=== PATIENT | female | born 1975 | race Caucasian/White ===

== ENCOUNTER 2017-05-10 12:57 | Emergency (ER) | payer OTHER ==
[~2017-05-10] VITALS: Ht 165.1 cm; Wt 62.0 kg
[2017-05-10 13:01] VITALS: BP 151/95; PULSE 112; RESP 16; TEMP 98.3; O2SAT 100
[2017-05-10 13:30] VITALS: RESP 16; O2SAT 95
--- NOTE | 2017-05-10 13:48 | PD ---
HPI Chief Complaint: Cardiac Complaint Time Seen by Provider: 13:12 Travel History International Travel<30 days: No Contact w/Intl Traveler<30days: No Traveled to known affect area: No History of Present Illness HPI 41-year-old female complains of palpitation, headache, dizziness. Patient states that she has history of intermittent SVT since she was younger. Patient was seen by retirement assistant on personal physician and had thyroid test and echocardiogram done in the past. Patient is not on any medication for tachycardia. Patient states that she has tachycardia in the 140s-160s at home for the past 3 days. Patient denies any excessive caffeine intake. Patient denies any chest pain or shortness of breath. Patient states that she has had intermittent lightheadedness, feeling things spinning around her the past 4 days. Patient states that she has mild aching headache diffuse over the head. Patient denies any visual change. Patient denies any neck pain. Patient denies abdominal pain. Patient denies any nausea vomiting diarrhea. Patient was seen in the local urgent care center and advised to take meclizine 3 times a day. Patient states that she has intermittent lightheadedness despite taking the meclizine. Patient states that the dizziness is not associated with head movement. Patient denies any ringing in the ears. Patient has been eating well. Patient denies any chance of being . Patient denies any dysuria or frequency. Patient denies any vaginal discharge or bleeding. Patient states that she was on medication for control intermittent SVT in the past. PFSH Past Medical History Medical History: Denies Significant Hx Tetanus Vaccination: < 5 Years Influenza Vaccination: No ?: Not LMP: 03/27/17 Past Surgical History Other Surgery: Yes (CYST REMOVED FROM ) Social History Alcohol Use: Yes (SOCIAL) Tobacco Use: No Substance Use: No Allergies-Medications (Allergen,Severity, Reaction): Coded Allergies: No Known Allergies (Unverified , 05/10/17) Reported Meds & Prescriptions Reported Meds & Active Scripts Active No Active Prescriptions or Reported Medications Review of Systems General / Constitutional: No: Fever Eyes: No: Visual changes HENT: Positive: Headaches, Lightheadedness Cardiovascular: Positive: Tachycardia, No: Chest Pain or Discomfort Respiratory: No: Shortness of Breath Gastrointestinal: No: Abdominal Pain Genitourinary: No: Dysuria Musculoskeletal: No: Pain Skin: No Rash Neurologic: No: Weakness Psychiatric: No: Depression Endocrine: No: Polydipsia Hematologic/Lymphatic: No: Easy Bruising Physical Exam Narrative GENERAL: Well-nourished, well-developed patient. SKIN: Focused skin assessment warm/dry. HEAD: Normocephalic. EYES: No scleral icterus. No injection or drainage. Pupils 2 mm equal reactive. NECK: Supple, trachea midline. No JVD or lymphadenopathy. CARDIOVASCULAR: Mild tachycardia rate and rhythm without murmurs, gallops, or rubs. RESPIRATORY: Breath sounds equal bilaterally. No accessory muscle use. GASTROINTESTINAL: Abdomen soft, non-tender, nondistended. MUSCULOSKELETAL: No cyanosis, or edema. BACK: Nontender without obvious deformity. No CVA tenderness. Neurologic exam normal. Data Data Last Documented VS Vital Signs Date Time Temp Pulse Resp B/P (MAP) Pulse Ox O2 Delivery O2 Flow Rate FiO2 05/10/17 15:16 101 16 127/82 (97) 95 Room Air 05/10/17 13:01 98.3 Orders Orders Electrocardiogram (05/10/17 13:26) Complete Blood Count With Diff (05/10/17 13:26) Comprehensive Metabolic Panel (05/10/17 13:26) Troponin I (05/10/17 13:26) Prothrombin Time / Inr (Pt) (05/10/17 13:26) Act Partial Throm Time (Ptt) (05/10/17 13:26) Thyroid Stimulating Hormone (05/10/17 13:26) Chest, Single Ap (05/10/17 13:26) Iv Access Insert/Monitor (05/10/17 13:26) Ecg Monitoring (05/10/17 13:26) Oximetry (05/10/17 13:26) Mri Brain W/O Contrast (05/10/17 13:26) Meclizine (Antivert) (05/10/17 16:00) Labs Laboratory Tests Test 05/10/17 13:40 White Blood Count 8.9 TH/MM3 Red Blood Count 5.05 MIL/MM3 Hemoglobin 15.8 GM/DL Hematocrit 45.6 % Mean Corpuscular Volume 90.3 FL Mean Corpuscular Hemoglobin 31.2 PG Mean Corpuscular Hemoglobin Concent 34.5 % Red Cell Distribution Width 12.5 % Platelet Count 276 TH/MM3 Mean Platelet Volume 7.6 FL Neutrophils (%) (Auto) 62.5 % Lymphocytes (%) (Auto) 30.6 % Monocytes (%) (Auto) 5.2 % Eosinophils (%) (Auto) 1.4 % Basophils (%) (Auto) 0.3 % Neutrophils # (Auto) 5.6 TH/MM3 Lymphocytes # (Auto) 2.7 TH/MM3 Monocytes # (Auto) 0.5 TH/MM3 Eosinophils # (Auto) 0.1 TH/MM3 Basophils # (Auto) 0.0 TH/MM3 CBC Comment DIFF FINAL Differential Comment Prothrombin Time 10.6 SEC Prothromb Time International Ratio 1.0 RATIO Activated Partial Thromboplast Time 28.6 SEC Blood Urea Nitrogen 10 MG/DL Creatinine 0.92 MG/DL Random Glucose 138 MG/DL Total Protein 8.7 GM/DL Albumin 4.1 GM/DL Calcium Level 9.2 MG/DL Alkaline Phosphatase 84 U/L Aspartate Amino Transf (AST/SGOT) 13 U/L Alanine Aminotransferase (ALT/SGPT) 23 U/L Total Bilirubin 0.3 MG/DL Sodium Level 137 MEQ/L Potassium Level 3.5 MEQ/L Chloride Level 104 MEQ/L Carbon Dioxide Level 27.2 MEQ/L Anion Gap 6 MEQ/L Estimat Glomerular Filtration Rate 68 ML/MIN Troponin I LESS THAN 0.02 NG/ML Thyroid Stimulating Hormone 3rd Gen 2.720 uIU/ML MDM Medical Decision Making Medical Screen Exam Complete: Yes Emergency Medical Condition: Yes Interpretation(s) Last Impressions Chest X-Ray 05/10/17 1326 Signed Impressions: Service Date/Time: Wednesday, May 10, 2017 13:49 - CONCLUSION: No acute disease. Neva Chery MD 1454 PM. CBC within normal limits. CMP within normal limits. Cardiac enzymes are normal. Differential Diagnosis Differential diagnosis including SVT, sinus tachycardia, PVCs, atrial fibrillation, atrial flutter, thyroid disease, vertigo, electrolyte imbalance, TIA, CVA. Narrative Course 41-year-old female with tachycardia, dizziness, headache. History of SVT in the past. Meclizine 25 mg p.o. given. Diagnosis Primary Impression: Paroxysmal SVT (supraventricular tachycardia) Patient Instructions: General Instructions Additional Instructions: Metoprolol as needed for tachycardia. Meclizine as needed for the dizziness. Follow-up with personal physician and neurologist. Return if worse. Med/Other Pt SpecificInfo: Prescription(s) given Scripts Meclizine (Meclizine) 25 Mg Tab 25 MG PO TID Y for VERTIGO, #21 TAB 0 Refills Prov: Dontae Friedman MD 05/10/17 Metoprolol Tartrate (Metoprolol Tartrate) 25 Mg Tab 25 MG PO BID for TACHYCARDIA, #60 TAB 0 Refills Prov: Dontae Friedman MD 05/10/17 Disposition: 01 DISCHARGE HOME Condition: Stable Dontae Friedman MD May 10, 2017 13:48
[2017-05-10 13:59] LABS: AUTOMATED NEUTROPHIL # 5.6 TH/MM3 (1.8-7.7); BASOPHIL % 0.3 % (0.0-2.0); EOSINOPHIL # 0.1 TH/MM3 (0-0.4); EOSINOPHIL % 1.4 % (0.0-4.0); HEMATOCRIT 45.6 % (35.0-46.0); HEMOGLOBIN 15.8 GM/DL (11.6-15.3); LYMPH % 30.6 % (9.0-44.0); LYMPHOCYTE # 2.7 TH/MM3 (1.0-4.8); MEAN CELL VOLUME 90.3 FL (80.0-100.0); MEAN CORPUSCULAR HEMOGLOBIN 31.2 PG (27.0-34.0); MEAN CORPUSCULAR HGB CONC 34.5 % (32.0-36.0); MEAN PLATELET VOLUME 7.6 FL (7.0-11.0); MONO % 5.2 % (0.0-8.0); MONOCYTE # 0.5 TH/MM3 (0-0.9); NEUT % 62.5 % (16.0-70.0); PLATELET COUNT 276 TH/MM3 (150-450); RED BLOOD COUNT 5.05 MIL/MM3 (4.00-5.30); RED CELL DISTRIBUTION WIDTH 12.5 % (11.6-17.2); WHITE BLOOD COUNT 8.9 TH/MM3 (4.0-11.0)
--- NOTE | 2017-05-10 14:00 | RADRPT ---
EXAM DATE/TIME: 05/10/2017 13:49 [facility] COMPARISON: No previous studies available for comparison. INDICATIONS : Rapid heart rate, dizzy MEDICAL HISTORY : None. SURGICAL HISTORY : None. ENCOUNTER: Initial ACUITY: 4 - 6 days PAIN SCORE: 0/10 LOCATION: Bilateral chest FINDINGS: A single view of the chest demonstrates the lungs to be symmetrically aerated without evidence of mas s, infiltrate or effusion. The cardiomediastinal contours are unremarkable. Osseous structures are intact. CONCLUSION: No acute disease. Neva Chery MD on May 10, 2017 at 13:57 Board Certified Radiologist. This report was verified electronically.
[2017-05-10 14:07] LABS: CHLORIDE 104 MEQ/L (98-107); SODIUM (NA) 137 MEQ/L (136-145)
[2017-05-10 14:10] LABS: ALBUMIN 4.1 GM/DL (3.4-5.0); BICARBONATE 27.2 MEQ/L (21.0-32.0); BLOOD UREA NITROGEN 10 MG/DL (7-18); CALCIUM 9.2 MG/DL (8.5-10.1); GLUCOSE,RANDOM 138 MG/DL (74-106)
[2017-05-10 14:13] LABS: ALT (GPT) 23 U/L (10-53); AST (GOT) 13 U/L (15-37); CREATININE 0.92 MG/DL (0.50-1.00); GLOMERULAR FILTRATION RATE 68 ML/MIN (>89); PROTHROMBIN TIME - PATIENT 10.6 SEC (9.8-11.6)
[2017-05-10 14:15] LABS: TOTAL BILIRUBIN ADULT 0.3 MG/DL (0.2-1.0); TOTAL PROTEIN 8.7 GM/DL (6.4-8.2)
[2017-05-10 14:16] LABS: ALKALINE PHOSPHATASE 84 U/L (45-117)
[2017-05-10 14:18] LABS: TROPONIN I LESS THAN 0.02 NG/ML (0.02-0.05)
[2017-05-10 15:16] VITALS: BP 127/82; PULSE 101; RESP 16; O2SAT 95
--- NOTE | 2017-05-10 15:41 | RADRPT ---
EXAM DATE/TIME: 05/10/2017 15:28 [facility] COMPARISON: No previous studies available for comparison. INDICATIONS : Cephalgia. Dizziness. MEDICAL HISTORY : None. SURGICAL HISTORY : None. ENCOUNTER: Initial ACUITY: 1 day PAIN SCORE: 0/10 LOCATION: cranial TECHNIQUE: Multiplanar, multisequence MRI of the brain was performed without contrast. FINDINGS: CEREBRUM: The ventricles are normal for age. No evidence of midline shift, mass lesion, hemorrhage or acute in farction. No extraaxial fluid collections are seen. The pituitary gland and suprasellar cistern are normal in configuration. WHITE MATTER: No significant signal abnormalities are seen in the white matter. POSTERIOR FOSSA: The cerebellum and brainstem are intact. The 4th ventricle is midline. The cerebellopontine angle is unremarkable. The cerebellar tonsils are normal in position. DIFFUSION IMAGING: No focal areas of restricted diffusion are seen. No evidence of acute infarction. EXTRACRANIAL: The visualized portions of the orbits and paranasal sinuses are unremarkable. CONCLUSION: 1. No acute intracranial abnormality. Eric Bower MD on May 10, 2017 at 15:37 Board Certified Radiologist. This report was verified electronically.
[2017-05-10] MEDS ORDERED: MECL-62 PO (16:00)
[2017-05-10] MEDS ORDERED: METO25TA3 PO (16:00)
[2017-05-10] MEDS ORDERED: MECLIZINE HCL 25 MG TAB PO ONE (16:00)
[2017-05-10 16:19] VITALS: BP 152/91
--- NOTE | 2017-05-11 13:21 | EKG ---
Date Performed: 05/10/2017 Time Performed: 13:46:59 PTAGE: 41 years EKG: SINUS TACHYCARDIA POSSIBLE RIGHT ATRIAL ENLARGEMENT POSSIBLE LEFT ATRIAL ENLARGEMENT MINIMA L ST DEPRESSION ABNORMAL RHYTHM ECG NO PREVIOUS TRACING DOCTOR: Rj Man Interpretating Date/Time 05/11/2017 13:19:46
== END 2017-05-10 16:19 | disposition home or self-care (01) ==
LOC: PHED 12:57
DX: I47.1 Supraventricular tachycardia (principal); R00.2 Palpitations; R94.31 Abnormal electrocardiogram [ECG] [EKG]; R42 Dizziness and giddiness; R51 Headache
CPT/HCPCS: 70551; 71045; 80053; 84443; 84484; 85025; 85610; 85730; 93005; 99285